=== PATIENT | female | born 1985 | race Asian ===

== ENCOUNTER 2022-08-10 10:03 | Emergency (ER) | payer OTHER, SELFPAY ==
[2022-08-10 10:07] VITALS: BP 152/92; PULSE 83; RESP 20; TEMP 36.9; O2SAT 99; BMI 27.3
--- NOTE | 2022-08-10 15:05 | ED_ITS ---
HPI - Extremity Problem General Chief complaint: Extremity Problem Stated complaint: Infected big toe Time Seen by Provider: 08/10/22 14:52 Source: patient Mode of arrival: ambulatory Limitations: no limitations History of Present Illness HPI Narrative: 37 yold female healthy presents to the ED for right big toe pain. Patient states on satuday she hit her right great big toe on steps and than toe nail lifted. Patient states she pushed nail back unto nail bed. patient now states top of red toe is painful and erythematous. patietn denies any other compalints. Related Data Previous Rx's Medication Instructions Recorded cephalexin 500 mg capsule 500 mg PO QID 7 days #28 caps 08/10/22 doxycycline hyclate 100 mg tablet 100 mg PO BID 7 days #14 tabs 08/10/22 Allergies Allergy/AdvReac Type Severity Reaction Status Date / Time No Known Allergies Allergy Verified 08/10/22 15:18 Review of Systems Review of Systems: Right big toe pain Yes all other systems are reviewed and are negative [facility] Social History Social History Advance Directives: No Advance Directives Information Provided: Yes Physical Exam Vital Signs: Vital Signs: Last Vital Signs Temp 98.4 F 08/10/22 10:07 Pulse 83 08/10/22 10:07 Resp 20 08/10/22 10:07 BP 152/92 H 08/10/22 10:07 Pulse Ox 99 08/10/22 10:07 O2 Del Method 08/10/22 10:07 BMI result Body Mass Index 27.3 Const: General: cooperative, healthy appearing, comfortable, no acute distress, well developed, alert and awake Orientation/consciousness: oriented to person, oriented to place, oriented to time and patient oriented x3 HEENT: Head: Yes normal to inspection, Yes No palpable skull fracture present, Yes normocephalic, Yes atraumatic and No abrasion Eyes: General: appearance normal, both eyes and all related structures Neck: Neck: Yes normal visual inspection, Yes full ROM, Yes no lymphadenopathy, Yes no meningeal signs, Yes trachea midline, Yes supple, No anterior neck swelling and No tender Chest: Chest palpation & inspection: normal inspection of the chest and normal palpation of entire chest wall Resp: Effort & Inspection: normal respiratory effort and able to speak in complete sentences Auscultation: clear to auscultation bilaterally Cardio: Jugular venous distension: no JVD Heart sounds: S1 normal heart sound present and S2 normal heart sound present GI: Inspection: Yes normal to inspection and No abdominal wall ecchymosis Palpation (GI): Soft to palpation, not firm, nontender and no guarding : General: No CVA tenderness and Yes no CVA tenderness Back/Spine/Pelvis: Back: no CVA tenderness, No CVA tenderness and No back tenderness Skin: General skin exam: no rashes or lesions noted and elasticity normal Neuro: General: oriented to person, oriented to place, oriented to time, patient oriented x3, gait normal, tone normal, moves all extremities, Normal light touch and pain sensation, no meningeal signs, no focal motor deficits, CN's II-XI intact bilaterally and normal sensation to monofilament Extrem: General: Yes normal to inspection and Yes full ROM Ankle/foot/toe images: 1. Front/top of big toe positive for redness and tenderness on palpation. Nail firmly in place on nail bed and not moving. Negative for any green/yellow pus coming from beneath nail or from toe. slight serosanguous fluid from nail. Negative for crepitus, ecchymosis, or deformity of great toe. Lower extremity motor/nerves/vascular exam intact Psych: Appearance: grossly normal, well kempt and not disheveled Course Course Course Narrative: Right big toe pain. Patient denies any history of diabetes. Top of toe positive for erythema swelling and pain. Negative for any fluctulance to indicate an incision and drainage. Reevaluation(s) Reevaluation #1: Not remove nail. Patient will be discharged with oral antibiotics. Differential diagnosis cellulitis versus early paronychia. Patient also educated on nail falling out on his own but should return to the ED of swelling redness and pain worsened. She also informed to return if profuse discharge fr om nail green/yellow color. Time: 15:13 Medical Decision Making Medical Decision Making MDM Narrative: 37 yold female presents to the ED for right big toe pain. Diagnosis cellulitis versus early paronychia. Presently not ready for any incision/drainage or any nail extraction. Differential Diagnosis Differential Diagnoses: The differential diagnosis associated with the presentation includes (Cellulitis, early paronychia not ready for incision or drainage or nail removal) Prescription Management I considered prescription management with: Pain Medication (pain medication) and Antibiotic Discharge Plan Discharge Clinical Impression: Cellulitis of great toe Patient Disposition: Home, Self-Care Instructions: Paronychia (ED), Cellulitis (ED), Sitz Bath (DC), Warm Compress or Soak (ED) Additional Instructions: History physical exam indicates cellulitis of trauma versus early paronychia not ready yet for incision and drainage or nail extraction. Also recommend warm compress on toe or soaking toe in warm water. Return to ED for worsening swelling/redness, worsening pain, profuse discharge, fever, chills, red streaks, or any other concerning symptoms. He will be discharged with antibiotics. Prescriptions: New cephalexin 500 mg capsule 500 mg PO QID 7 Days Qty: 28 0RF doxycycline hyclate 100 mg tablet 100 mg PO BID 7 Days Qty: 14 0RF Stand Alone Forms: Work/School Release Interventions: ED Discharge Assessment Last Done: 08/10/22 15:33 Discharge Date/Time: 08/10/22 15:34 Print Language: Bengali
== END 2022-08-10 15:34 | disposition home or self-care (01) ==
PROVIDERS: Emergency Provider Emergency Medicine; PCP Internal Medicine
DX: L03.031 Cellulitis of right toe (principal); M79.674 Pain in right toe(s)
CPT/HCPCS: 99282; 99283